=== PATIENT | male | born 1990 | race African-American/Black ===

== ENCOUNTER 2022-01-18 17:32 | Emergency (ER) | payer OTHER | END 2022-01-18 18:36 | disposition home or self-care (01) | LOC: ERS 17:32 | DX: G51.0 Bell's palsy (principal) | CPT/HCPCS: 36416; 99284 ==

== ENCOUNTER 2022-03-28 13:56 | Emergency (ER) | payer OTHER, SELFPAY ==
[2022-03-28] MEDS ORDERED: Acetaminophen 500 MG TAB ONE (17:12)
== END 2022-03-28 17:49 | disposition home or self-care (01) ==
LOC: ERS 13:56
DX: U07.1 COVID-19 (principal); J06.9 Acute upper respiratory infection, unspecified
CPT/HCPCS: 99283; U0003; U0005